=== PATIENT | female | born 1960 | race Caucasian/White ===

== ENCOUNTER 2017-12-14 06:28 | Day surgery (SDC) | payer OTHER ==
[~2017-12-14] VITALS: Ht 162.6 cm; Wt 91.4 kg
[~2017-12-14 06:28] MED LIST: CRAN450T10 PO; CYAN500 PO; DIVA-76 PO; FERR-89 PO; LEVO100 PO; LORA1TAB3 PO; RINGERS SOLUTION,LACTATED 1,000 ML IV ONE; RISP.5 PO; RISP1 PO; TOPI25 PO; VITA150T PO; ZOLP10TA7 PO
[2017-12-14] MEDS ORDERED: RINGERS SOLUTION,LACTATED 1,000 ML IV ONE (06:30)
[2017-12-14 08:00] LABS: PROTHROMBIN TIME 10.5 SEC (9.4-11.6)
[2017-12-14] MEDS ORDERED: AMPICILLIN SODIUM 1 GM/VIAL ONE (11:22)
[2017-12-14] MEDS ORDERED: MIDAZOLAM HCL 2 MG/2 ML VIAL IVP ONE (12:00)
[2017-12-14] MEDS ORDERED: KETOROLAC TROMETHAMINE 60 MG/2 ML VIAL IM ONE (12:00)
[2017-12-14] MEDS ORDERED: GLYCOPYRROLATE 0.2 MG/ML VIAL IM ONE (12:00)
[2017-12-14] MEDS ORDERED: ONDANSETRON HCL 4 MG/2 ML VIAL IVP ONE (12:00)
[2017-12-14] MEDS ORDERED: LIDOCAINE/PF 2% 5 ML VIAL INJ ONE (12:00)
[2017-12-14] MEDS ORDERED: DEXAMETHASONE SOD PHOS 4 MG/ML VIAL IVP ONE (12:00)
[2017-12-14] MEDS ORDERED: PROPOFOL 1% 20 ML VIAL IVP ONE (12:00)
[2017-12-14] MEDS ORDERED: SUCCINYLCHOLINE CHLORIDE 20 MG/ML 10 ML VIAL IVP ONE (12:00)
== END 2017-12-14 14:15 | disposition home or self-care (01) ==
LOC: SURGERY 06:28
PROVIDERS: ATTEND Dentist General Practice
DX: K05.30 Chronic periodontitis, unspecified (principal); E03.9 Hypothyroidism, unspecified; E66.9 Obesity, unspecified; G80.8 Other cerebral palsy; G40.909 Epilepsy, unspecified, not intractable, without status epilepticus; D64.9 Anemia, unspecified; G47.33 Obstructive sleep apnea (adult) (pediatric); F73 Profound intellectual disabilities; K59.09 Other constipation; I34.1 Nonrheumatic mitral (valve) prolapse; F63.81 Intermittent explosive disorder; I51.9 Heart disease, unspecified; Z79.899 Other long term (current) drug therapy; Z68.34 Body mass index [BMI] 34.0-34.9, adult
CPT/HCPCS: 36415; 41899; 71045; 80201; 85610; 85730; 93005; J0290; J0330; J1100; J1885; J2250; J2405; J2704; J3490 ×2; J7120